=== PATIENT | female | born 2005 | race Hispanic/Latino ===

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

== ENCOUNTER 2023-12-20 22:56 | Observation (INO) | payer OTHER, SELFPAY ==
[2023-12-20 23:42] LABS: Bacteria/HPF None Seen HPF (None Seen); Bilirubin Negative (Negative); Blood, Urine Negative (Negative); CAUTI Indications for Culture Pelvic or flank pain; Clarity Turbid (Clear); Glucose, Urine (Dipstick) Normal (Negative); Ketone, Urine Negative (Negative); Leukocyte 250 Leu/uL (Negative); Nitrite Negative (Negative); Protein, Urine (Dipstick) Negative (Neg-Trace); RBC/HPF 0-3 HPF (0-3); Specific Gravity, Urine 1.014 (1.002-1.036); Urine Culture Reflex No No; Urobilinogen Normal mg/dL (Less than 2)
[2023-12-21] MEDS ORDERED: Iopamidol-370 76% 500 ML MDV (1 ML CHARGE) ONE
[2023-12-21 00:30] LABS: #Basophils 0.03 10x3/uL (0.0-0.2); %Basophils 0.3 % (0.0-1.0); %Eosinophils 1.7 % (0.0-10.0); %Lymphocytes 32.4 % (28.0-48.0); %Monocytes 7.9 % (0.0-4.0); %Neutrophils 57.5 % (31.0-61.0); Hemoglobin 12.3 g/dL (12.0-16.0); Mean Corpuscular HGB CONC 31.5 g/dL (32.0-36.0); Mean Platelet Volume 10.7 fL (7.4-10.4); Platelet Count 269 10x3/uL (130-400); RBC Distribution Width 16.5 % (11.5-14.5); Red Blood Cell (RBC) Count 5.13 mill/uL (4.00-5.20)
[2023-12-21 00:38] LABS: BHCG - Serum Negative (NEGATIVE); Pregs Control Background? CLEAR/WHITE (CLR/WHITE); Pregs Control Bar Appear? YES (CONTROL BAR)
[2023-12-21 00:46] LABS: ALT (SGPT) 29 U/L (8-55); AST (SGOT) 29 U/L (5-34); Albumin 3.8 g/dL (3.5-5.0); Alkaline Phosphatase 106 U/L (40-100); Anion Gap 17 mmol/L (10-20); BUN (Urea Nitrogen) 6 mg/dL (7.0-18.7); Bilirubin, Total 0.6 mg/dL (0.2-1.2); Calc. Creatinine Clearance 0 mL/min (70-130); Calcium 10.3 mg/dL (7.8-10.44); Carbon Dioxide 22 mmol/L (22-29); Chloride 102 mmol/L (98-107); Estimated GFR 121; Globulin 4.2 g/dL (2.4-3.5); Glucose 90 mg/dL (70-105); Lipase 33 U/L (8-78); Potassium 3.5 mmol/L (3.5-5.1); Sodium 137 mmol/L (136-145)
[2023-12-21] MEDS ORDERED: Ondansetron PF 4 MG/2 ML Vial ONE (01:09)
[2023-12-21] MEDS ORDERED: Ketorolac Tromethamine 30 MG (1 mL) VIAL ONE (01:18)
[2023-12-21] MEDS ORDERED: Sodium Chloride 0.9% 100 ML ONE (02:58)
[2023-12-21] MEDS ORDERED: Piperacillin/Tazobactam 4.5 GM VIAL ONE (02:58)
== END 2023-12-21 03:18 | disposition short-term general hospital (02) ==
LOC: ERS 22:56 → ERHOLD 12-21 03:07
PROVIDERS: ADMIT Student in an Organized Health Care Education/Training Program; ATTEND Student in an Organized Health Care Education/Training Program
DX: K80.00 Calculus of gallbladder with acute cholecystitis without obstruction (principal)
CPT/HCPCS: 36415; 74177; 76705; 80053; 81001; 83690; 84703; 85025; 96361; 96374; 96375; G0378; J1885; J2405; J2543; J3490; Q9967

== ENCOUNTER 2023-12-29 11:55 | Inpatient (IN) | payer SELFPAY ==
[~2023-12-29 11:55] MED LIST: Iopamidol-370 76% 500 ML MDV (1 ML CHARGE) ONE
[2023-12-29 12:57] LABS: #Basophils 0.05 10x3/uL (0.0-0.2); %Basophils 0.5 % (0.0-1.0); %Eosinophils 1.7 % (0.0-10.0); %Lymphocytes 26.5 % (28.0-48.0); %Monocytes 6.5 % (0.0-4.0); %Neutrophils 64.6 % (31.0-61.0); Hematocrit 39.4 % (36.0-47.0); Hemoglobin 12.4 g/dL (12.0-16.0); Mean Corpuscular HGB CONC 31.5 g/dL (32.0-36.0); Mean Corpuscular Hemoglobin 23.8 pg (25.0-35.0); Mean Corpuscular Volume 75.6 fL (78.0-98.0); Mean Platelet Volume 11.1 fL (7.4-10.4); Platelet Count 268 10x3/uL (130-400); RBC Distribution Width 15.9 % (11.5-14.5); Red Blood Cell (RBC) Count 5.21 mill/uL (4.00-5.20)
[2023-12-29 13:02] LABS: ALT (SGPT) 18 U/L (8-55); AST (SGOT) 29 U/L (5-34); Albumin 3.9 g/dL (3.5-5.0); Alkaline Phosphatase 92 U/L (40-100); Anion Gap 13 mmol/L (10-20); BUN (Urea Nitrogen) 7 mg/dL (7.0-18.7); Bilirubin, Total 0.4 mg/dL (0.2-1.2); Calc. Creatinine Clearance 0 mL/min (70-130); Calcium 9.5 mg/dL (7.8-10.44); Carbon Dioxide 21 mmol/L (22-29); Chloride 107 mmol/L (98-107); Estimated GFR 108; Globulin 4.2 g/dL (2.4-3.5); Glucose 98 mg/dL (70-105); Lipase 23 U/L (8-78); Potassium 3.8 mmol/L (3.5-5.1); Protein, Total 8.1 g/dL (6.0-8.3); Sodium 137 mmol/L (136-145)
[2023-12-29 14:48] LABS: Bacteria/HPF None Seen HPF (None Seen); Bilirubin Negative (Negative); Blood, Urine Negative (Negative); CAUTI Indications for Culture < 2yrs of age; Clarity Clear (Clear); Glucose, Urine (Dipstick) Normal (Negative); Ketone, Urine Negative (Negative); Leukocyte 25 Leu/uL (Negative); Nitrite Negative (Negative); Protein, Urine (Dipstick) 20 mg/dL (Neg-Trace); RBC/HPF 0-3 HPF (0-3); Specific Gravity, Urine 1.021 (1.002-1.036); Squamous Epithelial 0-3 HPF (0-3); Urobilinogen Normal mg/dL (Less than 2); WBC/HPF 0-3 HPF (0-3); pH, Urine 6.5 (5.0-9.0)
[2023-12-29 15:12] LABS: Urine Culture Reflex Yes Yes
[2023-12-29 16:50] LABS: Specific Gravity 1.021 (1.002-1.036)
[2023-12-29 16:52] LABS: Pregnancy Test - Urine (BHCG) Negative (Negative); Pregu Control Background? CLEAR/WHITE (CLR/WHITE); Pregu Control Bar Appear? YES (CONTROL BAR)
[2023-12-29] MEDS ORDERED: Ondansetron PF 4 MG/2 ML Vial IVP PRN (17:31)
[2023-12-29] MEDS ORDERED: Piperacillin/Tazobactam 2.25 GM in Sodium Chloride 0.9% 100 ML IVPB SCH (18:00)
[2023-12-29] MEDS: Sodium Chloride 0.9% 1,000 ML IV SCH (18:47)
[2023-12-29] MEDS: Piperacillin/Tazobactam 3.375 GM in Sodium Chloride 0.9% 100 ML IVPB SCH ×2 (19:39→19:56)
[2023-12-29 21:14] LABS: Hematocrit 37.2 % (36.0-47.0); Hemoglobin 11.8 g/dL (12.0-16.0); Platelet Count 239 10x3/uL (130-400)
[2023-12-29] MEDS: Heparin 10,000 UNITS/ 10 ML VIAL SLOW IVP SCH (22:12)
[2023-12-29] MEDS: Heparin 25,000 units/D5W 500 ML IVPB SCH (22:13)
[2023-12-30 05:28] LABS: #Basophils 0.04 10x3/uL (0.0-0.2); %Basophils 0.5 % (0.0-1.0); %Eosinophils 3.2 % (0.0-10.0); %Lymphocytes 43.8 % (28.0-48.0); %Monocytes 7.3 % (0.0-4.0); %Neutrophils 44.9 % (31.0-61.0); Hematocrit 34.4 % (36.0-47.0); Hemoglobin 10.9 g/dL (12.0-16.0); Mean Corpuscular HGB CONC 31.7 g/dL (32.0-36.0); Mean Corpuscular Hemoglobin 24.4 pg (25.0-35.0); Mean Corpuscular Volume 77.1 fL (78.0-98.0); Mean Platelet Volume 11.4 fL (7.4-10.4); Platelet Count 226 10x3/uL (130-400); RBC Distribution Width 15.9 % (11.5-14.5); Red Blood Cell (RBC) Count 4.46 mill/uL (4.00-5.20)
[2023-12-30 05:47] LABS: ALT (SGPT) 23 U/L (8-55); AST (SGOT) 36 U/L (5-34); Albumin 3.2 g/dL (3.5-5.0); Alkaline Phosphatase 80 U/L (40-100); Anion Gap 14 mmol/L (10-20); BUN (Urea Nitrogen) 5 mg/dL (7.0-18.7); Bilirubin, Total 0.6 mg/dL (0.2-1.2); Calc. Creatinine Clearance 127 mL/min (70-130); Calcium 8.7 mg/dL (7.8-10.44); Carbon Dioxide 20 mmol/L (22-29); Chloride 108 mmol/L (98-107); Estimated GFR 115; Globulin 3.5 g/dL (2.4-3.5); Glucose 96 mg/dL (70-105); Potassium 3.3 mmol/L (3.5-5.1); Protein, Total 6.7 g/dL (6.0-8.3); Sodium 139 mmol/L (136-145)
[2023-12-30 05:56] LABS: PTT 120.8 sec (22.9-36.1)
[2023-12-30] MEDS: Potassium Chloride 20 MEQ in Premix 1 BAG IVPB SCH (06:45)
[2023-12-30] MEDS: Senokot S 8.6-50 MG TAB PO SCH (09:05)
[2023-12-30] MEDS ORDERED: PROPOFOL 20 ML ONE (15:26)
[2023-12-30] MEDS ORDERED: Rocuronium Bromide 10 MG/ML (10ML VIAL) ONE (15:26)
[2023-12-30] MEDS ORDERED: Lidocaine 2% PF 5 ML VIAL ONE (15:26)
[2023-12-30] MEDS ORDERED: fentaNYL PF 100 MCG/2 ML SYRINGE ONE ×2 (15:27→17:41)
[2023-12-30] MEDS ORDERED: fentaNYL 50 mcg/mL 1 mL Vial ONE (16:21)
[2023-12-30] MEDS ORDERED: SUGAMMADEX SODIUM 200 MG/2 ML VIAL ONE (16:38)
[2023-12-30] MEDS ORDERED: Dexamethasone 4 mg/ml Vial ONE (17:04)
[2023-12-30] MEDS ORDERED: diphenhydrAMINE 50 MG/ML VIAL ONE (17:04)
[2023-12-30] MEDS ORDERED: Ondansetron PF 4 MG/2 ML Vial ONE (17:04)
[2023-12-30] MEDS ORDERED: Metoclopramide HCl 10 MG (2 mL) VIAL ONE (17:05)
[2023-12-30] MEDS: Morphine 2 MG/ML VIAL SLOW IVP PRN (18:52)
[2023-12-30] MEDS: Acetaminophen 325 MG TAB PO SCH (19:49)
[2023-12-30 23:13] LABS: Prothrombin Time 13.4 sec (12.0-14.7)
[2023-12-30 23:14] LABS: D-Dimer Test 1.77 mcg/mL (0.27-0.43)
[2023-12-30 23:15] LABS: PTT 22.7 sec (22.9-36.1)
[2023-12-31] MEDS: traMADol HCl 50 MG TAB PO PRN (04:00)
[2023-12-31] MEDS ORDERED: Apixaban 5 MG TAB PO SCH (09:00)
[2023-12-31 10:00] VITALS: BMI 32.5
[2023-12-31 10:30] LABS: Prothrombin Time 13.4 sec (12.0-14.7)
[2023-12-31 12:56] LABS: #Basophils Less than 0.03 10x3/uL (0.0-0.2); %Basophils 0.3 % (0.0-1.0); %Eosinophils 0.5 % (0.0-10.0); %Lymphocytes 32.5 % (28.0-48.0); %Monocytes 8.3 % (0.0-4.0); %Neutrophils 58.3 % (31.0-61.0); Hematocrit 35.1 % (36.0-47.0); Hemoglobin 11.1 g/dL (12.0-16.0); Mean Corpuscular HGB CONC 31.6 g/dL (32.0-36.0); Mean Corpuscular Hemoglobin 24.5 pg (25.0-35.0); Mean Corpuscular Volume 77.5 fL (78.0-98.0); Mean Platelet Volume 11.2 fL (7.4-10.4); Platelet Count 219 10x3/uL (130-400); RBC Distribution Width 15.7 % (11.5-14.5); Red Blood Cell (RBC) Count 4.53 mill/uL (4.00-5.20)
[2023-12-31] MEDS: Heparin 10,000 UNITS/ 10 ML VIAL SLOW IVP SCH (13:19)
[2023-12-31] MEDS: Heparin 25,000 units/D5W 500 ML IVPB SCH (13:22)
[2023-12-31 19:37] LABS: Hematocrit 35.3 % (36.0-47.0); Hemoglobin 11.2 g/dL (12.0-16.0); Platelet Count 205 10x3/uL (130-400)
[2023-12-31 19:53] LABS: PTT 127.8 sec (22.9-36.1)
[2024-01-01 12:20] LABS: HEX PHOS LA Tube 1 24.4 SEC; HEX PHOS LA Tube 2 21.3 SEC; Hexagonal Phospholipid Neut 3.1 SEC (0-8.0)
[2024-01-01 12:48] LABS: Cardiolipin IgG Ab 1.6 GPL-U/mL (<10 Negative); EliA APS New Method **** NEW METHOD ****
[2024-01-01 12:51] LABS: EliA APS New Method **** NEW METHOD ****; beta-2-Glycoprotein I IgA Ab 4.1 U/mL (<7 Negative); beta-2-Glycoprotein I IgG Ab 1.9 U/mL (<7 Negative); beta-2-Glycoprotein I IgM Abs 5.4 U/mL (<7 Negative)
[2024-01-01 13:13] VITALS: BP 113/76; TEMP 98.1
[2024-01-01] MEDS: Apixaban 5 MG TAB PO SCH (16:32)
== END 2024-01-01 17:14 | disposition home or self-care (01) | DRG 417 ==
LOC: ERS 11:55 → SJJU 16:01 → OBSVTOIN 17:31
PROVIDERS: ADMIT Surgery; ATTEND Surgery
PROC: 0FT44ZZ Resection of Gallbladder, Percutaneous Endoscopic Approach (ICD-10-PCS; principal; 2023-12-30)
DX: K81.0 Acute cholecystitis (principal); K55.059 Acute (reversible) ischemia of intestine, part and extent unspecified
CPT/HCPCS: 36415; 74177; 76705; 80053; 81001; 81025; 83090; 83690; 85014; 85018; 85025; 85049; 85300; 85303; 85305; 85307; 85598; 85610; 85730; 86146; 86147; 87086; A6258; C1713; J1100; J1200; J1644; J2001; J2272; J2405; J2543; J2704; J2765; J3010; J3480; J3490; J7050; Q9967

== ENCOUNTER 2024-04-17 20:32 | Emergency (ER) | payer SELFPAY ==
[2024-04-17 21:03] LABS: #Basophils 0.04 10x3/uL (0.0-0.2); %Basophils 0.5 % (0.0-1.0); %Eosinophils 2.9 % (0.0-10.0); %Neutrophils 60.4 % (31.0-61.0); Hematocrit 37.9 % (36.0-47.0); Hemoglobin 11.7 g/dL (12.0-16.0); Mean Corpuscular HGB CONC 30.9 g/dL (32.0-36.0); Mean Corpuscular Hemoglobin 24.1 pg (25.0-35.0); Platelet Count 180 10x3/uL (130-400); RBC Distribution Width 16.3 % (11.5-14.5); Red Blood Cell (RBC) Count 4.86 mill/uL (4.00-5.20)
[2024-04-17 21:16] LABS: ALT (SGPT) 20 U/L (8-55); AST (SGOT) 22 U/L (5-34); Albumin 3.7 g/dL (3.5-5.0); Alkaline Phosphatase 88 U/L (40-100); Anion Gap 12 mmol/L (10-20); BUN (Urea Nitrogen) 10 mg/dL (7.0-18.7); Bilirubin, Total 0.2 mg/dL (0.2-1.2); Calc. Creatinine Clearance 0 mL/min (70-130); Calcium 9.4 mg/dL (7.8-10.44); Carbon Dioxide 24 mmol/L (22-29); Chloride 106 mmol/L (98-107); Estimated GFR 103; Globulin 3.2 g/dL (2.4-3.5); Glucose 113 mg/dL (70-105); Potassium 3.5 mmol/L (3.5-5.1); Protein, Total 6.9 g/dL (6.0-8.3); Sodium 138 mmol/L (136-145)
== END 2024-04-17 21:36 | disposition home or self-care (01) ==
LOC: ERS 20:32
DX: N93.9 Abnormal uterine and vaginal bleeding, unspecified (principal)
CPT/HCPCS: 36415; 80053; 84702; 85025; 99284